=== PATIENT | female | born 1955 | race Caucasian/White ===

== ENCOUNTER 2022-01-14 11:30 | Outpatient (RCR) | payer OTHER, SELFPAY | END 2022-06-08 13:06 | disposition home or self-care (01) | PROVIDERS: PCP Family Medicine; Visit Provider Physician Assistant Surgical | DX: M25.512 Pain in left shoulder (principal); Z51.89 Encounter for other specified aftercare | CPT/HCPCS: 97110; 97140 ==

== ENCOUNTER 2022-05-18 14:15 | Outpatient (CLI) | payer OTHER, SELFPAY ==
--- NOTE | 2022-05-18 14:30 | MR_ITS ---
[address] [address] Phone:?[phone] Fax:?[phone] Referring Physician Information: Jc Gillette M.D. [address] [place] [address] Phone:?[phone] Fax:?[phone] Patient:Garrett Whipple D.O.B:?1955 Sex:?Female Phone:?[phone] [facility] MRN:?[id number] Exam Date:?05/18/2022 ? EXAM: MRI of the RIGHT SHOULDER, without contrast CLINICAL: Right shoulder pain. Evaluate for rotator cuff tear. COMPARISONS: None available. TECHNICAL: MRI sequences of the right shoulder: Axials: PD, PDFS Coronals: PD, T2FS Sagittals: PDFS, T2 SEDATION: None. CONTRAST: None. FINDINGS: Rotator cuff: Supraspinatus/Infraspinatus: There is full-thickness tearing involving the distal supraspinatus tendon measuring approximately 9 mm in AP dimension with approximately 8 mm of proximal retraction of torn tendon fibers as seen on coronal series 4 image 11-13 and sagittal series 8 image 7-8. There is mild partial interstitial tearing of the distal infraspinatus tendon. Moderate supraspinatus and infraspinatus tendinosis. Small ganglion cyst formation is noted about the proximal infraspinatus tendon. No significant fatty atrophy of the muscle bellies. Teres minor: No tendinosis, tear or atrophy. Subscapularis: Moderate tendinosis with superimposed partial interstitial tearing of the distal tendon. No significant fatty atrophy of the muscle belly. Bursae: Subacromial-subdeltoid: Mild fluid. Subcoracoid: No convincing subcoracoid bursal thickening/bursitis. Coracoacromial arch: Acromion morphology: Type II. No os acromiale. Acromiohumeral space: Within normal limits. Coracohumeral space: Within normal limits. Biceps tendon, long head: Mild to moderate tendinosis of the tendon. No significant tendon tear or displacement. Mild fluid about the imaged proximal extra-articular tendon. Glenohumeral joint: Physiologic volume of joint fluid. Articular cartilage: No significant chondral loss. Capsule: No convincing evidence of capsular thickening or injury. Labrum: Mild scattered degenerative changes. No perilabral cyst identified. Bones: No suspicious marrow signal alteration, fracture or dislocation. Acromioclavicular joint: Moderate degenerative hypertrophic changes are seen to involve the AC joint. No evidence of AC joint injury. IMPRESSION: 1. Full-thickness tearing involving the distal supraspinatus tendon with approximately 8 mm of proximal retraction of torn tendon fibers, superimposed upon moderate tendinosis. Moderate tendinosis with mild superimposed partial interstitial tearing of the distal infraspinatus tendon. 2. Moderate tendinosis with superimposed partial interstitial tearing of the distal subscapularis tendon. 3. Mild to moderate tendinosis of the long head biceps tendon. 4. Moderate degenerative hypertrophic changes involving the AC joint. JCZ Electronically signed on 05/19/2022 8:37:00 AM by Alexander Rosales D.O.
== END 2022-05-18 14:16 | disposition home or self-care (01) ==
PROVIDERS: PCP Family Medicine; Visit Provider Orthopaedic Surgery
DX: M25.511 Pain in right shoulder (principal); M75.101 Unspecified rotator cuff tear or rupture of right shoulder, not specified as traumatic; M75.21 Bicipital tendinitis, right shoulder
CPT/HCPCS: 73221

== ENCOUNTER 2022-09-08 07:26 | Day surgery (SDC) | payer OTHER, SELFPAY ==
[2022-09-08] VITALS (22 sets, daily range): BP systolic 90–138; BP diastolic 48–86; PULSE 53–80; RESP 16; TEMP 36–36.7; O2SAT 87–98; BMI 32.8
--- NOTE | 2022-09-08 07:34 | SUR.PREOP ---
HOME COVID NEGATIVE.
[2022-09-08] MEDS: ACETAMINOPHEN 500 MG TABLET 1000 MG PO (08:00)
[2022-09-08] MEDS: LACTATED RINGERS 1000 ML 1,000 ML 100 ML IV ×2 (08:00→09:43)
[2022-09-08] MEDS: CELECOXIB 200 MG CAPSULE PO (08:00)
[2022-09-08] MEDS: OXYCODONE (CR) 10 MG TAB.ER.12H PO (08:00)
[2022-09-08] MEDS: SODIUM CHLORIDE 0.9 % (FLUSH) 10 ML SYRINGE IVF (08:00)
[2022-09-08] MEDS: SCOPOLAMINE 1 MG/3 DAY PATCH 1 PATCH TRANSDERMA (08:35)
[2022-09-08] MEDS: fentaNYL 100 MCG/2 ML inj IVP (08:37)
[2022-09-08] MEDS: MIDAZOLAM HCL 1 MG/ML inj IVP (08:37)
--- NOTE | 2022-09-08 08:39 | SUR.PREOP ---
TIME?OUT:?0835 PT/RN/MDA?VERIFICATION?OF?SURGICAL?SITE,?PROCEDURE,?AND?CONSENT OBTAINED?PRIOR?TO?INVASIVE?PROCEDURE.
--- NOTE | 2022-09-08 08:47 | W.PM.NB ---
Nerve Block Nerve Block Time Seen by Provider: 08:47 Date Seen: 09/08/22 Type of block requested by surgeon for post-operative analgesia: supraclavicular Side: right Time out performed: Yes Verification of patient name: Yes Verification of date of : Yes Site marking: site marked Name of person performing procedure: chelsea marcial Continuous monitoring Was continuous monitoring of O2 sat, B/P, groundwater monitoring technician, recorded every 15 minutes?: Yes Procedure Checklist: sterile prep, needles and gloves Ultrasound guided. Images saved: Yes Medications given in 5ml increments after negative aspiration: Ropivicaine %: 0.5 mL: 20 Needle gauge: 22 Decadron (mg): 10 Precedex (mcg): 20 Patient tolerated procedure well: Yes Block Charges Block Charge (with Pro Fee): Intercostal Nerve Block Use of Ultrasound Machine for Block: Yes- US Guidance/pain block
--- NOTE | 2022-09-08 11:35 | PM.ORPRC ---
Procedure Note Date of procedure: 09/08/22 Procedure: PREOPERATIVE DIAGNOSIS: Right shoulder rotator cuff tear, AC joint arthrosis POSTOPERATIVE DIAGNOSIS: Right shoulder rotator cuff tear, AC joint arthrosis NAME OF OPERATION: Right shoulder arthroscopic subacromial decompression, distal clavicle excision, mini open rotator cuff repair SURGEON: Jc Gillette MD DRUG INSPECTOR: SYED Dawn ANESTHESIA: Supraclavicular block plus general endotracheal ESTIMATED BLOOD LOSS: 5 mL COMPLICATIONS: None SPECIMENS: None DRAINS: None PREOPERATIVE ANTIBIOTICS: Ancef 2 grams INDICATIONS: The patient is a 67-year-old with a history of right shoulder pain secondary to the above diagnoses. Despite appropriate non operative management, they continue to have symptoms. Operative intervention was recommended. The risks, benefits and expected outcomes were discussed in detail. These included but were not limited to: Infection, bleeding, injury to blood vessel or nerve, venous thromboembolism. All questions were answered to their satisfaction. PROCEDURE: A supraclavicular block was placed by Anesthesia. General anesthesia was administered. The patient was placed in the high beach chair position. The right shoulder was prepped and draped in the usual sterile fashion. The glenohumeral joint was infiltrated with 20 mL of normal saline with epinephrine. The posterior portal was established, the arthroscope was introduced. The anterior portal was established, Diagnostic arthroscopy was performed with findings as follows: The biceps and biceps anchor are intact. The anterior, posterior and superior labrum are normal. Articular surfaces on the humeral head and glenoid are normal. There are no loose bodies. There is a full-thickness tear of the supraspinatus. The arthroscope was placed in the subacromial space, the lateral portal was established. The Arthrex Sunol was used to dissect the acromion free. The CA ligament was recessed off the anterior acromion, the AC joint was exposed. The acromioplasty was performed with the bur in the posterior portal. The bur was then placed in the lateral portal and the lateral and anterior aspect of the acromion were resected. The undersurface of the distal clavicle was resected through the lateral portal. Finally, the bur was placed in the anterior portal and the remainder of the distal clavicle was resected for a total of 10 mm. An accessory anterolateral portal was placed. The subacromial/subdeltoid bursa was aggressively debrided. There is a full-thickness tear of the supraspinatus. Arthroscopic instruments were removed. The accessory anterolateral portal was extended proximally and distally, subcutaneous dissection was taken with electrocautery to the deltoid. The deltoid was divided in line with its fibers. The static retractor was placed. The subacromial/subdeltoid bursa was debrided with the Henderson scissors. The greater tuberosity was debrided to punctate bleeding bone using the arthroscopic bur. Three margin convergence sutures were placed with a # 2 FiberWire suture. Two Arthrex BioComposite SwiveLock anchors were placed just off the articular surface. Both limbs of the FiberWire and fiber tape were passed using the scorpion. We tied the 2 central FiberWire sutures over the rotator cuff. We then proceeded with a lateral row of SwiveLock anchors x 2 crossing the FiberTape and incorporating the FiberWire and fiber link into each lateral row anchor. The bone was quite poor quality. Anterior, lateral row anchor pulled out. Therefore, we went to a different site and used a bigger diameter anchor. This had much better purchase. This provides an anatomic, watertight repair of the rotator cuff. There is no tension on the repair with the shoulder at 0? abduction. The wound was irrigated with normal saline off the pump. The deltoid was repaired with an 0 Vicryl in an interrupted lbtvjo-oz-qvsol fashion. Subcutaneous tissues were closed with a 3-0 Vicryl. Skin was closed with a 3-0 Monocryl in a subcuticular fashion. A dry dressing, polar care and sling were applied. Sponge and needle counts were correct x2. The patient tolerated the procedure well. There were no apparent complications. They were carefully transferred to the hospital bed and taken to the postanesthesia care unit in satisfactory condition. PLAN: The patient will be discharged to home. No active range of motion of the shoulder will be allowed for 6 weeks postoperatively. They can work on active range of motion of the elbow, wrist and fingers. They will follow up in the office next week for a wound check and an AP and transscapular Y-view of the shoulder prior to being seen.
--- NOTE | 2022-09-08 12:14 | W.ANESCHARGE ---
Anesthesia Charges Start Date/Time Anesthesia Start Date: 09/08/22 Anesthesia Start Time: 09:43 Stop Date/Time Anesthesia Stop Date: 09/08/22 Anesthesia Stop Time: 12:10
--- NOTE | 2022-09-08 12:15 | W.ANESCHARGE ---
Anesthesia Charges Start Date/Time Anesthesia Start Date: 09/08/22 Anesthesia Start Time: 09:43 Stop Date/Time Anesthesia Stop Date: 09/08/22 Anesthesia Stop Time: 12:10
== END 2022-09-08 14:20 | disposition home or self-care (01) ==
PROVIDERS: PCP Family Medicine; Visit Provider Orthopaedic Surgery
PROC: (CPT 23412; principal; 2022-09-08 09:00)
DX: M75.101 Unspecified rotator cuff tear or rupture of right shoulder, not specified as traumatic (principal); M19.011 Primary osteoarthritis, right shoulder
CPT/HCPCS: 29824; 29826; 23412; 01638; 76942; A9270; C1713; J0330; J1100; J1170; J2250; J2405; J2704; J2795; J3010; J3490; J7120

== ENCOUNTER 2022-09-11 17:53 | Emergency (ER) | payer OTHER, SELFPAY ==
[2022-09-11 18:00] VITALS: BP 161/87; PULSE 102; RESP 18; TEMP 36.9; O2SAT 97; BMI 31.0
--- NOTE | 2022-09-11 18:12 | ED.GENADULT ---
HPI - General Adult General Chief complaint: Nausea/Vomiting Stated complaint: Nausea Time Seen by Provider: 09/11/22 18:04 Source: patient Mode of arrival: ambulatory Limitations: no limitations History of Present Illness HPI narrative: 67-year-old female coming in today complaining of nausea. She is postop day 3 status post a right shoulder arthroscopic subacromial decompression, distal clavicle excision and mini open rotator cuff repair. Surgery was uneventful and recovery has been uneventful except for last night when the nausea set in. Patient states that she has not been able to eat or drink anything today. She denies any vomiting. She denies any fever but feels chills on and off. She states she had a very similar experience when she had her left shoulder worked on about a year ago. She is on hydrocodone but has not taken any today because of the nausea. She denies any diarrhea. States that she has increased urinary frequency for the last day or so. Denies dysuria or urgency. Denies any abdominal pain. No chest pain or shortness of breath. She is not dizzy, lightheaded or diaphoretic. Patient was seen postop day 3 in September of 2021 for similar symptoms. However, at that time she had also abruptly stopped her Effexor prior to surgery. This is not the case this time around. Related Data Home Medications Medication Instructions Recorded Confirmed aspirin 81 mg tablet,delayed 81 mg PO QDAY 12/20/21 09/08/22 release esomeprazole magnesium 40 mg 40 mg PO DAILY 12/20/21 09/08/22 capsule,delayed release fluticasone propionate 50 2 spray intranasal DAILY 12/20/21 09/08/22 mcg/actuation nasal spray,suspension multivit with 1 tab PO QDAY 12/20/21 09/08/22 welxnmjy-gahg-SW-lutein 8 mg iron-400 mcg-300 mcg tablet (Centrum [place] Women) trazodone 100 mg tablet 100 mg PO .Bedtime 12/20/21 09/08/22 vital proteins PO 05/23/22 rosuvastatin 10 mg tablet 10 mg PO DAILY 07/12/22 09/08/22 Previous Rx's Medication Instructions Recorded hydrocodone 5 mg-acetaminophen 325 1 tab PO Q4-6H PRN pain #30 tabs 09/08/22 mg tablet ondansetron 4 mg disintegrating 4 mg PO Q8H PRN nausea and 09/11/22 tablet vomiting #10 tabs Allergies Allergy/AdvReac Type Severity Reaction Status Date / Time Conjugated estrogen Allergy Intermediate Blood clot Uncoded 05/23/22 13:35 in brain Review of Systems Status of ROS: Reports: 10 or more systems reviewed and unremarkable except as noted in History and below [facility] Medical History Esophageal reflux ?K21.9 - Gastro-esophageal reflux disease without esophagitis (ICD-10) Hiatal hernia ?K44.9 - Diaphragmatic hernia without obstruction or gangrene (ICD-10) HTN (hypertension) ?I10 - Essential (primary) hypertension (ICD-10) Sleep apnea ?G47.30 - Sleep apnea, unspecified (ICD-10) Surgical History S/P arthroscopy of right shoulder (09/08/22) ?Z98.890 - Other specified postprocedural states (ICD-10) S/P left knee arthroscopy (12/14/12) ?Z98.890 - Other specified postprocedural states (ICD-10) S/P right knee arthroscopy (04/15/11) ?Z98.890 - Other specified postprocedural states (ICD-10) Status post left rotator cuff repair (09/21/21) ?Z98.890 - Other specified postprocedural states (ICD-10) Status post osteotomy (08/29/11) ?Z98.890 - Other specified postprocedural states (ICD-10) Status post total left knee replacement (04/04/14) ?Z96.652 - Presence of left artificial knee joint (ICD-10) Status post total right knee replacement (08/02/13) ?Z96.651 - Presence of right artificial knee joint (ICD-10) Social History Smoking Status: Former smoker Do you use any of these nicotine containing products: None Second hand tobacco smoke exposure: No How often do you have a drink containing alcohol: never How often do you have six or more drinks on one occasion: Never AUDIT-C Alcohol total score: 0 Non-prescribed substance use: denies use Caffeine: Yes (COFFEE) Are you using contraception or practicing any form of control: No Exam Narrative: Exam Narrative: Well-nourished well-developed patient in no acute distress. Alert and oriented. Answers questions appropriately. Mood and affect are appropriate. Thoughts are goal oriented and rational. No tangential or magical thinking noted. Patient speaks in full sentences without needing to catch her breath. HEENT: Normocephalic atraumatic. Pupils are equally round reactive to light. Extraocular muscles are intact. Conjunctivae are moist without any icterus noted. Moist mucous membranes. Neck is soft. Cardiovascular: Heart is regular rate and rhythm S1 and S2 are present without any murmurs. Lungs: Clear to auscultation bilaterally no wheezes rhonchi or rales are appreciated. Patient takes deep breaths without any discomfort. Abdomen: Soft and nontender nondistended with normal bowel sounds. No guarding or rebound. No masses or organomegaly appreciated. Extremities: Bilateral lower extremities are without edema. Incisions over the right shoulder appear to be healing appropriately, no significant swelling noted. No erythema. Skin: Well perfused without any obvious rashes. Const: Vital Signs, click to edit/add: Vital Signs - 24 hr 09/11/22 18:00 Temperature 98.4 F Pulse Rate [Pulse Oximeter] 102 H Respiratory Rate 18 Blood Pressure [Le ft Upper Arm] 161/87 H Pulse Oximetry 97 Course Course Hospital Course: IV established and fluids and Zofran started. EKG, read by me, shows normal sinus rhythm with 1 premature atrial complex, pulse 74. Lab work unremarkable. After treatment patient states she was feeling better. She denies feeling nauseated while she was here after Zofran was given. She even stated that eating some saltine crackers sounded really good. Vital Signs Vital signs: Initial Vital Signs Temperature 98.4 F 09/11/22 18:00 Temperature Source Temporal Artery Scan 09/11/22 18:00 Pulse Rate 102 H 09/11/22 18:00 Respiratory Rate 18 09/11/22 18:00 Blood Pressure 161/87 H 09/11/22 18:00 Blood Pressure Mean 111 09/11/22 18:00 Pulse Oximetry 97 09/11/22 18:00 Vital Signs Temperature 98.4 F 09/11/22 18:00 Pulse Rate 102 H 09/11/22 18:00 Respiratory Rate 18 04/09/23 18:00 Blood Pressure 161/87 H 09/11/22 18:00 Pulse Oximetry 97 09/11/22 18:00 Temperature 98.4 F 09/11/22 18:00 Pulse Rate 102 H 09/11/22 18:00 Respiratory Rate 18 09/11/22 18:00 Blood Pressure 161/87 H 09/11/22 18:00 Pulse Oximetry 97 09/11/22 18:00 Medical Decision Making MDM Narrative Medical decision making narrative: 67-year-old female with postoperative nausea, 2nd time this has occurred after shoulder surgery. Feeling better after fluids and Zofran. Patient will be sent home with Zofran and instructions to return if needed. Patient agreeable and had no other questions. Lab Data Lab results reviewed: Yes I reviewed the patient's lab results Labs: Lab Results 09/11/22 09/11/22 Range/Units 18:25 18:55 WBC 9.79 (4.50-11.00) K/uL RBC 4.70 (4.00-5.20) m/uL Hgb 14.4 (12.0-16.0) gm/dL Hct 41.8 (33.0-51.0) % MCV 89 (80-100) fL MCH 31 (26-34) pg MCHC 34 (32-36) gm/dL RDW Coeff of Patti 12.7 (11.5-15.5) % Plt Count 219 (140-440) K/uL Neut % (Auto) 81.0 H (42.0-72.0) % Lymph % (Auto) 10.7 L (20-44) % [place] % (Auto) 6.8 (0.0-11.0) % Eos % (Auto) 0.4 (0.0-7.0) % Baso % (Auto) 0.1 (0.0-3.0) % Neut # (Auto) 7.90 H (1.7-7.0) K/uL Lymph # (Auto) 1.00 (0.90-2.90) K/uL [place] # (Auto) 0.70 (0.00-0.90) K/UL Eos # (Auto) 0.04 (0.00-0.50) K/uL Baso # (Auto) 0.01 (0.00-0.30) K/uL Sodium 137 (135-149) mmol/L Potassium 3.9 (3.6-5.1) mmol/L Chloride 105 (96-114) mmol/L Carbon Dioxide 24 (20-32) mmol/L BUN 14 (7-30) mg/dL Creatinine 0.7 (0.5-1.5) mg/dL Estimated Creat Clear 41.19 Estimated GFR 95 ml/min Glucose 129 H (60-115) mg/dL Lactate 1.3 (0.5-1.9) mmol/L Calcium 10.1 (8.4-10.6) mg/dL Total Bilirubin 0.8 (0.1-1.5) mg/dL Direct Bilirubin 0.1 (0.0-0.5) mg/dL AST 30 (12-35) U/L ALT 26 (4-35) U/L Alkaline Phosphatase 90 (40-150) U/L C-Reactive Protein 1.2 H (0.5-1.0) mg/dL Total Protein 7.1 (6.0-8.3) g/dL Albumin 4.3 (3.3-5.0) g/dL Urine Color Yellow (Yellow) Urine Appearance Clear (Clear) Urine pH 8.5 (5.0-8.5) Ur Specific [place] 1.020 (1.000-1.030) Urine Protein Negative (Negative) Urine Glucose (UA) Negative (Negative) Urine Ketones Negative (Negative) Urine Blood Negative (Negative) Urine Nitrite Negative (Negative) Urine Bilirubin Negative (Negative) Urine Urobilinogen 0.2 (0.2-1.0) Ur Leukocyte Esterase Negative (Negative) POC Troponin I 0.00 L (0.01-0.04) ng/ml ECG Data Attestation: I personally reviewed and interpreted this ECG as follows: Discharge Plan Discharge Clinical Impression: Postoperative nausea Patient Disposition: Home, Self-Care Condition: Stable Additional Instructions: Okay to take Zofran as needed for nausea. Follow-up if you develop a fever, vomiting or worsening symptoms. Prescriptions: New ondansetron 4 mg tablet,disintegrating 4 mg PO Q8H PRN (Reason: nausea and vomiting) Qty: 10 0RF No Action vital proteins PO fluticasone propionate 50 mcg/actuation spray,suspension 2 spray intranasal DAILY esomeprazole magnesium 40 mg capsule,delayed release(DR/EC) 40 mg PO DAILY trazodone 100 mg tablet 100 mg PO .Bedtime Centrum [place] Women 8 mg iron-400 mcg-300 mcg tablet 1 tab PO QDAY aspirin 81 mg tablet,delayed release (DR/EC) 81 mg PO QDAY rosuvastatin 10 mg tablet 10 mg PO DAILY Patient Comments: TAKE 1 TABLET BY MOUTH EVERYDAY AT BEDTIME hydrocodone-acetaminophen 5-325 mg tablet 1 tab PO Q4-6H MDD 6 tabs per day PRN (Reason: pain) Qty: 30 0RF Follow Up/Referrals: Madelaine Gardiner DO [Primary Care Provider] - Stand Alone Forms: [facility] Info Instructions
[2022-09-11 18:34] LABS: Lactate* 1.3 mmol/L (0.5-1.9)
[2022-09-11] MEDS: 0.9 % SODIUM CHLORIDE 1000 ml 1,000 ML IV (18:34)
[2022-09-11] MEDS: ONDANSETRON 2 MG/ML inj 4 MG IVP (18:34)
[2022-09-11 18:44] LABS: Basophils Absolute Auto 0.01 K/uL (0.00-0.30); Basophils Percent Auto 0.1 % (0.0-3.0); Eosinophils Absolute Auto 0.04 K/uL (0.00-0.50); Eosinophils Percent Auto 0.4 % (0.0-7.0); Hematocrit 41.8 % (33.0-51.0); Hemoglobin* 14.4 gm/dL (12.0-16.0); Lymphocytes Percent Auto 10.7 % (20-44); Mean Corpuscular HGB Conc 34 gm/dL (32-36); Mean Corpuscular Hemoglobin 31 pg (26-34); Mean Corpuscular Volume 89 fL (80-100); Monocytes Percent Auto 6.8 % (0.0-11.0); Platelet Count* 219 K/uL (140-440); RDW Coefficient of Variation % 12.7 % (11.5-15.5); White Blood Count* 9.79 K/uL (4.50-11.00)
[2022-09-11 18:48] LABS: Slide Review Reflex No
[2022-09-11 18:52] LABS: Albumin* 4.3 g/dL (3.3-5.0); Chloride* 105 mmol/L (96-114); Potassium* 3.9 mmol/L (3.6-5.1); Sodium* 137 mmol/L (135-149)
[2022-09-11 18:54] LABS: Creatinine* 0.7 mg/dL (0.5-1.5); Est. Creatinine Clearance* 41.19; Estimated Glomerular Filt Rate 95 ml/min
[2022-09-11 18:55] LABS: Alanine Aminotransferase* 26 U/L (4-35); Alkaline Phosphatase* 90 U/L (40-150); Aspartate Amino Transferase* 30 U/L (12-35); Bilirubin Direct* 0.1 mg/dL (0.0-0.5); Bilirubin Total* 0.8 mg/dL (0.1-1.5); Blood Urea Nitrogen* 14 mg/dL (7-30); Carbon Dioxide* 24 mmol/L (20-32); Glucose* 129 mg/dL (60-115); Total Protein* 7.1 g/dL (6.0-8.3)
[2022-09-11 18:56] LABS: Calcium* 10.1 mg/dL (8.4-10.6)
[2022-09-11 18:58] LABS: C Reactive Protein* 1.2 mg/dL (0.5-1.0)
[2022-09-11 19:03] LABS: Appearance Urine Clear (Clear); Bilirubin Urine Negative (Negative); Blood Urine Negative (Negative); Color Urine Yellow (Yellow); Glucose Urine Negative (Negative); Ketones Urine Negative (Negative); Leukocyte Esterase Urine Negative (Negative); Nitrite Urine Negative (Negative); Protein Urine Negative (Negative); Urobilinogen Urine 0.2 (0.2-1.0); pH Urine 8.5 (5.0-8.5)
[2022-09-11 19:11] LABS: RBC Urine 0-2 (0-2); WBC Urine 0-2 (0-5)
[2022-09-11 19:26] LABS: Erythrocyte SedimentationRate* 8 mm/hr (2-20)
== END 2022-09-11 19:30 | disposition home or self-care (01) ==
PROVIDERS: Emergency Provider Family Medicine; PCP Family Medicine
DX: R11.0 Nausea (principal); Z98.890 Other specified postprocedural states
CPT/HCPCS: 36415; 80048; 80076; 81001; 83605; 84484; 85025; 85651; 86140; 87086; 87186; 93005; 96374; 99283; 99284; J2405; J7030

== ENCOUNTER 2022-11-28 13:00 | Outpatient (RCR) | payer OTHER, SELFPAY ==
--- NOTE | 2022-09-21 15:36 | PT.OPEX ---
[facility] PT [facility] Eval Start: 09/20/22 16:28 Freq: Status: Active Protocol: Document 09/21/22 10:24 KLV (Rec: 09/21/22 15:35 KL [id number]) E-signed By Daniella Garcia, PT Physical Therapy Outpatient Evaluation Insurance Information Recert Due Date 12/16/22 Insurance Name [facility],Medicare B Medical Diagnosis s/p right shoulder mini open rotator cuff repair, distal clavicle excision and subacromial decompression DOS 09/08/22 Treating Diagnosis Right shoulder pain, limited shoulder ROM, gross UE weaknees Referring Jaleel Sharp (Dr. Gillette) Subjective Subjective Carmen reports to PT following right uncomplicated RCR (mini- open supraspinatus), distal clavicle excision and subacromial decompression DOS 09/08/[address] Gillette with 1 night stay in the hospital. She had the same surgery on her left 1 year ago and already feels that the right is progressing very well with minimal to no pain. She has had follow up with GERARDO Manjarrez and overall everything is looking very good. She has been consistent with sling use and AROM of elbow, wrist and hand. Sleeping is going well. Denies N/T distally. Some neck soreness but stretches are helpful. She is no longer taking pain medication. Has returned to driving, some weeding with L UE. PMH: hypertension, R TKA, L TKA, L RCR Pain Comments 06/14 worst Date of Last Physician Visit 10/01/22 Current Work Status Retired Precautions Treatment Precautions/Contraindications No AROM x6 weeks (until October 20) AROM of elbow, wrist and hand Therapy Limitations/Systems Review Not Limited Objective Other/Pertinent Objective PROM R: -ER0: 33 -FF: 105 -Abd: 86 AROM L: -ER0: 52 -Functional ER: T1 -Functional IR: L4 -FF: 148 -Abd: 132 MMT deferred d/t s/p Observation: incisions healing well and no signs/symptoms of infection, covered with surgical glue, small bruising noted mid bicep Increased tone R UT Functional Test Performed & Score QuickDASH: 31.8% Assessment Assessment/Impression Pt presents with signs and symptoms consistent with s/p 2 weeks R RCR. DOS: 09/08/22. Anticipated deficits/ impairments in swelling, pain, ROM, and strength. Pt would benefit from skilled PT interventions to facilitate return to PLOF and ability to reach high into cupboards, knit, garden, perform all ADLs such as washing hair and donning/doffing clothes with minimal to no pain. Primary Functional Limitations Reaching, lifting, donning/ doffing shirts/bra, knitting, gardening Plan of Care Rehabilitation Potential Good Physical Therapy Goals In 6 weeks (11/02/22) Improve ER0 to 40 to improve ease of transfers and ADL's Improve FF tolerance to increase ease of ADL's /daily care By 12 weeks (12/14/22) Pt will tolerate gradual progression of AROM to facilitate progression through POC Patient will exhibit full shoulder ROM, in order to facilitate greater ease with ADLs and progression through POC By 20 weeks (02/08/23) Pt will exhibit RC and Scapular Stab strength of 5/5 to allow progression back to normal and desired activities without pain including but not limited to gardening and knitting Patient will be independent in self-management of shoulder and shoulder related symptoms Treatment Plan/Direct Interventions Ice/Cold/Vasopneumatic,Joint Mobilization,Manual Therapy, Neuromuscular Re-ed,Self-Care/ Home Management,Therapeutic Activities,Therapeutic Exercises Frequency/Duration 1-2 times a week for 6 weeks with decreasing frequency to 1x/wk or every other week until functional goals met post-surgically Patient Will Be Discharged From Therapy Completion of LTG(s), Independent w/HEP, Independently Progressing Evaluation Billing Untimed Code Treatment Minutes 18 Complexity Low Certification Information Initial Certification Date 09/21/22 Ending Certification Date 12/16/22 Provider Signature Shows Agreement With POC & Medical Necessity Physician Signature & Date Requested Please Sign/Date Here Physician Comment/Change : Physician NPI Number #
== END 2022-11-28 13:44 | disposition home or self-care (01) ==
PROVIDERS: PCP Family Medicine; Visit Provider Physician Assistant Surgical
DX: M25.511 Pain in right shoulder (principal); Z74.09 Other reduced mobility; Z98.890 Other specified postprocedural states; R53.1 Weakness; Z51.89 Encounter for other specified aftercare
CPT/HCPCS: 97110; 97140; 97161